=== PATIENT | female | born 1970 | race Caucasian/White ===

== ENCOUNTER 2017-02-07 20:28 | Emergency (ER) | payer MEDICARE ==
[~2017-02-07] VITALS: Ht 160 cm; Wt 88.5 kg
[~2017-02-07 20:28] MED LIST: BACLOFEN10 MG PO; BENADRYL25 MG PO; CIPROFLOXACIN500 MG PO; CYMBALTA60 MG PO; DOCUSATE SODIU100 MG PO; FIORICET 50-321 EACH PO; GABAPENTIN300 MG PO; HYDROCODON-ACE1 EA10 PO; HYDROCODON-ACE1 EAC8 PO; IMITREX100 MG PO; LAMOTRIGINE25 MG PO; MACROBID 100 M100 MG PO; MECLIZINE HCL25 MG PO; MELOXICAM7.5 MG PO; NAPROXEN500 M1 PO; NORCO 5-325 TA1 EACH PO; ONDANSETRON ODT4 MG SL; ONDANSETRON ODT8 MG PO; OXYCODONE HCL5 MG PO; PERCOCET 5-3251 EACH PO; PHENTERMINE H37.5 M1 PO; PIROXICAM20 MG PO; PREDNISOLONE SO10 MG PO; PREDNISONE20 MG PO; PROBIOTIC1 EAC2 PO; PROMETHAZINE HC25 M1 PO; PROXICAM; PYRIDIUM200 MG; SULFAMETHOXAZO1 EAC1 PO; SUMAVEL DO4 MG/0.5 M SQ; TOPAMAX100 MG PO; TRANSDERM-SCOP1 EA TD; VISTARIL50 MG PO; VOLTAREN-XR100 MG PO; ZANAFLEX4 MG PO; ZOFRAN ODT4 MG SL; ZOFRAN ODT8 MG SL; ZOFRAN8 MG PO; ZOLPIDEM TART6.25 MG PO
[2017-02-07] MEDS ORDERED: ROBAXIN-750750 MG PO (20:45)
--- NOTE | 2017-02-08 16:17 | EKG ---
[facility] [address] [facility] [place] [address] Signed Normal sinus rhythm Normal ECG When compared with ECG of 05-NOV-2016 21:16, Vent. rate has decreased BY 40 BPM Confirmed by CARLI MELTON MD ([id number]) on 02/08/2017 4:16:58 PM Electronically Signed By: CARLI MELTON MD 02/08/17 1617 PATIENT NAME: GINNY JOHNSON JOSELUIS Electrocardiogram DATE OF : 66 PHYSICIAN: CARLI MELTON MD REPORT #: [id number] REPORT IS CONFIDENTIAL AND NOT TO BE RELEASED WITHOUT AUTHORIZATION
== END 2017-02-07 22:36 | disposition home or self-care (01) ==
LOC: ED 20:28
DX: R07.9 Chest pain, unspecified (principal); Z90.49 Acquired absence of other specified parts of digestive tract; Z98.51 Tubal ligation status; Z88.4 Allergy status to anesthetic agent; Z79.899 Other long term (current) drug therapy; Z79.891 Long term (current) use of opiate analgesic; Z98.890 Other specified postprocedural states
CPT/HCPCS: 71010; 80053; 84484; 85025; 93005; 93010; 96361; 96374; 99284; J1885; J7030

== ENCOUNTER 2017-03-25 13:00 | Emergency (ER) | payer MEDICARE ==
[~2017-03-25] VITALS: Ht 160 cm; Wt 83.9 kg
[~2017-03-25 13:00] MED LIST changes: +ROBAXIN-750750 MG PO
== END 2017-03-25 14:48 | disposition home or self-care (01) ==
LOC: ED 13:00
DX: M54.41 Lumbago with sciatica, right side (principal); Z90.49 Acquired absence of other specified parts of digestive tract; Z98.51 Tubal ligation status; Z98.890 Other specified postprocedural states; Z88.4 Allergy status to anesthetic agent
CPT/HCPCS: 72100; 96372; 99283; J1170; J2550

== ENCOUNTER 2017-03-27 13:26 | Emergency (ER) | payer MEDICARE ==
[~2017-03-27] VITALS: Ht 160 cm; Wt 83.9 kg
[2017-03-27] MEDS ORDERED: PERCOCET 5-3251 EACH PO (14:13)
== END 2017-03-27 14:29 | disposition home or self-care (01) ==
LOC: ED 13:26
DX: G89.29 Other chronic pain (principal); M54.5 Low back pain; G43.909 Migraine, unspecified, not intractable, without status migrainosus; Z90.49 Acquired absence of other specified parts of digestive tract; Z98.51 Tubal ligation status; Z88.8 Allergy status to other drugs, medicaments and biological substances; Z79.899 Other long term (current) drug therapy
CPT/HCPCS: 99283

== ENCOUNTER 2017-09-27 22:18 | Emergency (ER) | payer OTHER ==
[~2017-09-27] VITALS: Ht 160 cm; Wt 83.9 kg
[~2017-09-27 22:18] MED LIST changes: +DOK100 MG PO; +SENNA CONCENTR8.6 MG PO; +VISTARIL25 MG PO; +VITAMIN D31000 UNI1 PO; +ZESTRIL10 MG PO; +ZOFRAN ODT4 MG PO
== END 2017-09-28 02:50 | disposition home or self-care (01) ==
LOC: ED 22:18
DX: R10.84 Generalized abdominal pain (principal); Z88.4 Allergy status to anesthetic agent; Z79.899 Other long term (current) drug therapy
CPT/HCPCS: 74176; 80053; 81001; 85025; 96374; 96375; 99284; J1170; J1200; J2405; J2550; J2765; J7030

== ENCOUNTER 2020-10-21 00:33 | Emergency (ER) | payer MEDICARE ==
[~2020-10-21] VITALS: Ht 160 cm; Wt 86.2 kg
--- OUTSIDE RECORDS SUMMARY | 2020-10-21 00:36 | XMS ---
PreManage Notification: GINNY JOHNSON Security Livestock Breeder Events No recent Security Events currently on file CRITERIA MET - Group Notification - [facility] There are no care providers on record at this time. Sung has no Care Guidelines for this patient. Care History Medical/Surgical 09/29/2017 [facility] - Patient is currently being seen by a Pain Clinic- On a Pain Contract per patient, - Patient has had two surgeries and is currently trying to manage her pain and chronic conditions. 09/29/2017 [facility] - Patient does not follow through with scheduled PCP appointments with Dr Bacilio alicea. - Patient does not answer phone calls from CHW and or PCP office. If patient is seen in ED for chronic condition please refer patient to PCP office per Dr Arteaga office. Care Recommendation: This patient has had 5 or more Emergency Department visits in the last 12 months. Patient requires education on the scope and purpose of the ED as an acute care provider not a Primary Care Provider and should not be utilized for chronic conditions. If patient returns to ED please contact Community Health WorkerManuela at [phone]. These are guidelines and the provider should exercise clinical judgment when providing care. E.D. VISIT COUNT (12 MO.) 1 [facility] TOTAL 1 NOTE: Visits indicate total known visits. ED/UCC VISIT TRACKING (12 MO.) 10/21/2020 00:34 [facility] [place] TYPE: Emergency COMPLAINT: - MULTIPLE COMPLAINTS INPATIENT VISIT TRACKING (12 MO.) No inpatient visits to display in this time frame [id number]
[2020-10-21] MEDS ORDERED: CEFDINIR300 MG (00:55)
[2020-10-21] MEDS ORDERED: SUMATRIPTAN SUC50 MG (00:55)
[2020-10-21] MEDS ORDERED: ROPINIROLE HCL1 MG (00:55)
[2020-10-21] MEDS ORDERED: EZETIMIBE10 MG (00:56)
[2020-10-21] MEDS ORDERED: GABAPENTIN800 MG (00:56)
[2020-10-21] MEDS ORDERED: DULOXETINE HCL60 MG (00:56)
[2020-10-21] MEDS ORDERED: ATORVASTATIN CA20 MG (00:56)
--- NOTE | 2020-10-21 12:02 | EKG ---
[facility] [address] [facility] [place], [place] [address] Signed Normal sinus rhythm Normal ECG When compared with ECG of 21-OCT-2020 00:46, (Unconfirmed) No significant change was found Confirmed by ROMEL PEREA MD ([id number]) on 10/21/2020 12:02:37 PM Electronically Signed By: ROMEL PEREA MD 10/21/20 1202 PATIENT NAME: ELIZABETHGINNYWILDA HUGGINS Electrocardiogram DATE OF : 66 PHYSICIAN: ROMEL PEREA MD REPORT #: [id number] REPORT IS CONFIDENTIAL AND NOT TO BE RELEASED WITHOUT AUTHORIZATION
--- NOTE | 2020-10-21 12:02 | EKG ---
[facility] [address] [facility] [place], [place] [address] Signed Normal sinus rhythm Normal ECG When compared with ECG of 07-FEB-2017 20:34, No significant change was found Confirmed by ROMEL PEREA MD ([id number]) on 10/21/2020 12:02:30 PM Electronically Signed By: ROMEL PEREA MD 10/21/20 1202 PATIENT NAME: GINNY JOHNSON JOSELUIS Electrocardiogram DATE OF : 66 PHYSICIAN: ROMEL PEREA MD REPORT #: [id number] REPORT IS CONFIDENTIAL AND NOT TO BE RELEASED WITHOUT AUTHORIZATION
== END 2020-10-21 05:05 | disposition home or self-care (01) ==
LOC: ED 00:33
DX: I95.9 Hypotension, unspecified (principal); G43.909 Migraine, unspecified, not intractable, without status migrainosus; M19.90 Unspecified osteoarthritis, unspecified site; Z88.8 Allergy status to other drugs, medicaments and biological substances; Z79.899 Other long term (current) drug therapy
CPT/HCPCS: 71045; 80053; 81001; 83605; 83735; 84484; 85025; 87040; 93005; 93010; 96374; 99284-25; J2310; J7030

== ENCOUNTER 2021-09-29 04:50 | Emergency (ER) | payer MEDICARE ==
[~2021-09-29] VITALS: Ht 160 cm; Wt 89.4 kg
[~2021-09-29 04:50] MED LIST changes: +ATORVASTATIN CA20 MG; +CEFDINIR300 MG; +DULOXETINE HCL60 MG; +EZETIMIBE10 MG; +GABAPENTIN800 MG; +ROPINIROLE HCL1 MG; +SUMATRIPTAN SUC50 MG
--- OUTSIDE RECORDS SUMMARY | 2021-09-29 04:52 | XMS ---
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 Care History Medical/Surgical 10/22/2020 [facility] - Patient is currently established with [facility]. If patient is seen in the ED during business hours. Please contact CHWs at [facility]. Care Recommendation: If this patient has had 5 or more Emergency Department visits in the last 12 months.\T\nbsp; Patient will require education on the scope and purpose of the ED as an acute care provider not a Primary Care Provider and should not be utilized for chronic conditions.\T\nbsp; These are guidelines and the provider should exercise clinical judgment when providing care. 09/29/2017 [facility] - Patient is currently being seen by a Pain Clinic- On a Pain Contract per patient, - Patient has had two surgeries and is currently trying to manage her pain and chronic conditions. E.D. VISIT COUNT (12 MO.) [address] [facility] TOTAL 2 NOTE: Visits indicate total known visits. ED/UCC VISIT TRACKING (12 MO.) 09/29/2021 04:[address] [facility] [place] TYPE: Emergency COMPLAINT: - NAUSEA, VOMITING, ABD PAIN 10/21/2020 00:[address] [facility] [facility] [place] TYPE: Emergency COMPLAINT: - MULTIPLE COMPLAINTS DIAGNOSES: - Hypotension, unspecified - Allergy status to other drugs, medicaments and biological substances - Dizziness and giddiness - Unspecified osteoarthritis, unspecified site - Migraine, unspecified, not intractable, without status migrainosus - Other prison (current) drug therapy INPATIENT VISIT TRACKING (12 MO.) No inpatient visits to display in this time frame [email or web address]
[2021-09-29] MEDS ORDERED: LISINOPRIL20 MG PO (05:00)
[2021-09-29] MEDS ORDERED: HYDROXYZINE HCL25 MG PO (05:00)
[2021-09-29] MEDS ORDERED: ONDANSETRON ODT8 MG PO (06:31)
== END 2021-09-29 09:20 | disposition home or self-care (01) ==
LOC: ED 04:50
DX: K52.9 Noninfective gastroenteritis and colitis, unspecified (principal); G43.909 Migraine, unspecified, not intractable, without status migrainosus; M19.90 Unspecified osteoarthritis, unspecified site; G47.33 Obstructive sleep apnea (adult) (pediatric); Z88.8 Allergy status to other drugs, medicaments and biological substances; Z79.899 Other long term (current) drug therapy
CPT/HCPCS: 36415; 80053; 83690; 85025; 96374; 96375; 99284-25; J1790; J2405; J7030

== ENCOUNTER 2022-01-12 17:33 | Emergency (ER) | payer OTHER, MEDICARE ==
[~2022-01-12] VITALS: Ht 160 cm; Wt 88.5 kg
[~2022-01-12 17:33] MED LIST changes: +HYDROXYZINE HCL25 MG PO; +LISINOPRIL20 MG PO
--- OUTSIDE RECORDS SUMMARY | 2022-01-12 17:36 | XMS ---
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 Care History Medical/Surgical 10/22/2020 [facility] - Patient is currently established with [facility]. If patient is seen in the ED during business hours. Please contact CHWs at [facility]. Care Recommendation: If this patient has had 5 or more Emergency Department visits in the last 12 months.\T\nbsp; Patient will require education on the scope and purpose of the ED as an acute care provider not a Primary Care Provider and should not be utilized for chronic conditions.\T\nbsp; These are guidelines and the provider should exercise clinical judgment when providing care. 09/29/2017 [facility] - Patient is currently being seen by a Pain Clinic- On a Pain Contract per patient, - Patient has had two surgeries and is currently trying to manage her pain and chronic conditions. [place] VISIT COUNT (12 MO.) 1 [facility] 2 [facility] TOTAL 3 NOTE: Visits indicate total known visits. ED/UCC VISIT TRACKING (12 MO.) 01/12/2022 17:33 [facility] [place] TYPE: Emergency COMPLAINT: - ANIMAL BITE 12/09/2021 12:51 [facility] TYPE: Emergency COMPLAINT: - CANT SWALLOW,SOB 09/29/2021 04:50 [facility] [place] TYPE: Emergency COMPLAINT: - NAUSEA, VOMITING, ABD PAIN DIAGNOSES: - Migraine, unspecified, not intractable, without status migrainosus - Allergy status to other drugs, medicaments and biological substances - Other alf (current) drug therapy - Obstructive sleep apnea (adult) (pediatric) - Unspecified osteoarthritis, unspecified site - Noninfective gastroenteritis and colitis, unspecified - Left upper quadrant pain INPATIENT VISIT TRACKING (12 MO.) 12/09/2021 15:49 [facility] TYPE: Intensive Care COMPLAINT: - POST OP SEROMA DIAGNOSES: - Body mass index [BMI] 34.0-34.9, adult - Dehydration - Essential (primary) hypertension - Postprocedural seroma of a nervous system organ or structure following other procedure - Acute kidney failure, unspecified - Other chronic pain - Contact with and (suspected) exposure to COVID-19 - Other terminal supervisor (current) drug therapy - Dysphagia, unspecified - Restless legs syndrome - Hyperlipidemia, unspecified - Obesity, unspecified - Major depressive disorder, recurrent, moderate - Hypo-osmolality and hyponatremia 12/03/2021 06:47 [facility] TYPE: Intensive Care COMPLAINT: - CERVICAL SPONDYLOSIS WITH RADICULOPATHY DIAGNOSES: - Restless legs syndrome - Body mass index [BMI] 35.0-35.9, adult - Other spondylosis with radiculopathy, cervical region - Restless legs syndrome - Carpal tunnel syndrome, right upper limb - Carpal tunnel syndrome, right upper limb - Obesity, unspecified - Other chronic pain - Spinal stenosis, cervical region - Other spondylosis with radiculopathy, cervical region - Other chronic pain - Body mass index [BMI] 35.0-35.9, adult - Hyperlipidemia, unspecified - Essential (primary) hypertension - Dysphagia, unspecified - Obesity, unspecified - Essential (primary) hypertension - Spinal stenosis, cervical region - Other spondylosis with radiculopathy, cervical region - Hyperlipidemia, unspecified - Major depressive disorder, recurrent, moderate - Major depressive disorder, recurrent, moderate - Dysphagia, unspecified [email or web address]
[2022-01-12] MEDS ORDERED: TIZANIDINE HCL4 MG PO (17:53)
[2022-01-12] MEDS ORDERED: GABAPENTIN800 MG PO (17:53)
[2022-01-12] MEDS ORDERED: AMOX TR-K CLV1 EAC1 PO (18:03)
== END 2022-01-12 19:02 | disposition home or self-care (01) ==
LOC: ED 17:33
DX: S60.372A Other superficial bite of left thumb, initial encounter (principal); W55.01XA Bitten by cat, initial encounter; Z88.5 Allergy status to narcotic agent; Z79.899 Other long term (current) drug therapy
CPT/HCPCS: A9270

== ENCOUNTER 2024-02-25 15:30 | Inpatient (IN) | payer MEDICARE, OTHER ==
[~2024-02-25] VITALS: Ht 160 cm; Wt 92.4 kg
[~2024-02-25 15:30] MED LIST changes: +AMOX TR-K CLV1 EAC1 PO; +DOCUSATE SODIU100 M1 PO; +GABAPENTIN800 MG PO; +HYDROCHLOROTH12.5 MG PO; +NITROSTAT0.4 MG SL; +TIZANIDINE HCL4 MG PO; +TRAZODONE HCL50 MG PO; +VAZALORE81 MG PO
[2024-02-25] MEDS ORDERED: MORPHINE SULFAT15 M1 PO (15:50)
[2024-02-25 15:53] LABS: BASOPHILS 0.9 % (0-2); EOSINOPHILS 3.7 % (0-6); HEMATOCRIT 37.2 % (35.0-50.0); HEMOGLOBIN 13.2 g/dL (12.0-18.0); LYMPHOCYTES 26.6 % (24-44); MCH 30.4 (27-36); MCHC 35.4 g/dl (30-36); MCV 85.9 fl (81-99); MONOCYTES 6.5 % (0-12); NEUTROPHILS 62.3 % (39-80); PLATELET COUNT 227 K/uL (140-440); RBC 4.33 M/ul (4.3-5.7)
[2024-02-25] MEDS ORDERED: SODIUM CHLORIDE 0.9% 1,000 ML IV ONE (16:00)
[2024-02-25 16:38] LABS: BILIRUBIN, URINE NEGATIVE (negative); BLOOD/HGB, URINE LARGE (Negative); KETONE, URINE NEGATIVE (Negative); LEUK ESTERASE, URINE SMALL (negative); NITRITE, URINE POSITIVE (negative)
[2024-02-25 16:42] LABS: ALBUMIN 2.7 g/dL (3.4-5.0); ALBUMIN/GLOBULIN RATIO 1.08 (1.1-2.4); ANION GAP 5.9 (7-21); BILIRUBIN, TOTAL 0.2 ng/dL (0.2-1.0); BUN/CREATININE RATIO 14.01 (6.0-28.6); CALCIUM 8.1 mg/dL (8.5-10.1); CREATININE, SERUM 1.07 mg/dL (0.55-1.02); POTASSIUM 3.9 mmol/L (3.5-5.1); PROTEIN, TOTAL 5.2 g/dL (6.4-8.2)
[2024-02-25 16:45] LABS: EPITHELIAL CELLS, URINE SQUAMOUS 3+ /lpf (0-1+); WHITE BLOOD CELLS, URINE 21-40 /HPF (0-5)
[2024-02-25 16:46] LABS: BACTERIA, URINE 3+ /hpf (negative); CASTS, URINE HYALINE 2+ \\lpf; CRYSTALS, URINE NONE SEEN (0-1+)
[2024-02-25 16:47] LABS: COLLECTION TYPE, URINE CLEAN CATCH; REFLEX CULTURE, URINE No (No)
--- NOTE | 2024-02-25 18:31 | EKG ---
[facility] [address] [facility] [place], [place] [address] Signed Normal sinus rhythm Low voltage QRS Right bundle branch block Abnormal ECG No previous ECGs available Confirmed by Twyla Cook MD ([id number]) on 02/25/2024 6:30:49 PM Electronically Signed By: TWYLA COOK MD 02/25/241830 PATIENT NAME: GINNY JOHNSON Electrocardiogram DATE OF : 66 PHYSICIAN: TWYLA COOK MD REPORT #: [id number] REPORT IS CONFIDENTIAL AND NOT TO BE RELEASED WITHOUT AUTHORIZATION
[2024-02-25] MEDS ORDERED: OXYCODONE HCL 5 MG TAB PO PRN (18:45)
[2024-02-25 19:01] VITALS: BP 115/75
[2024-02-25] MEDS ORDERED: CEFTRIAXONE/SODIUM CHLORIDE 1 GM/100 ML PIGGYBACK IV SCH (19:30)
--- NOTE | 2024-02-25 19:30 | NUR ---
REPORT RECEIVED FROM FLAKITA OLIVO, PT IS RESTING IN BED AWAKE, USING TABLET, NO REQUESTS AT THIS TIME.
--- NOTE | 2024-02-25 19:45 | NUR ---
IN TO MEET PT AND DISCUSS PLAN OF CARE FOR THE NIGHT. PT UPDATED ON NEED FOR ANOTHER URINE SAMPLE PER LAB AND DR BAUM REQUEST FOR IT TO BE OBTAINED VIA STRAIGHT CATH AND PT AGREEABLE BUT WANTS TO WAIT A BIT SHE HAS JUST GOTTEN BACK FROM USING THE BATHROOM. NO FURTHER REQUESTS.
--- NOTE | 2024-02-25 20:15 | NUR ---
IN TO DO STRAIGHT CATH FOR URINE SAMPLE AND ASSESSMENT. AFTER URINE SAMPLE OBTAINED PT GOT UP TO AMBULATE SELF TO BATHROOM TO VOID FURTHER, STEADY ON FEET, HR STEADY WHILE UP. PT THEN ASSISTED BACK TO BED. ORTHOSTATIC VITALS WERE DONE AND WERE NEGATIVE. PT DOES HAVE CHRONIC BACK PAIN BUT SHE STATES IT IS TOLERABLE AT THIS TIME. SHE HAS AN INCISION ON RIGHT NECK FROM RECENT SURGERY WITH [facility]. SHE DOES STATE SHE IS HOT, TEMP TURNED DOWN AND FAN PROVIDED. NO OTHER REQUESTS AT THIS TIME.
[2024-02-25 20:29] LABS: BILIRUBIN, URINE NEGATIVE (negative); BLOOD/HGB, URINE MODERATE (Negative); KETONE, URINE NEGATIVE (Negative); LEUK ESTERASE, URINE SMALL (negative); NITRITE, URINE NEGATIVE (negative); PH, URINE 6.5 (5-7)
[2024-02-25 20:39] LABS: BACTERIA, URINE 2+ /hpf (negative); CASTS, URINE NONE SEEN \\lpf; CRYSTALS, URINE NONE SEEN (0-1+); EPITHELIAL CELLS, URINE SQUAMOUS 1+ /lpf (0-1+); WHITE BLOOD CELLS, URINE 41-50 /HPF (0-5)
[2024-02-25 20:40] LABS: COLLECTION TYPE, URINE CLEAN CATCH; REFLEX CULTURE, URINE Yes (No)
[2024-02-25 21:00] VITALS: BP 112/64
[2024-02-25] MEDS ORDERED: GABAPENTIN 400 MG CAP PO SCH (21:00)
[2024-02-25] MEDS ORDERED: TRAZODONE HCL 50 MG TAB PO SCH (21:00)
--- NOTE | 2024-02-25 21:10 | NUR ---
IN TO GIVE HS MEDS, PT STATES SHE USUALLY TAKES 150MG TRAZADONE AND IS REQUESTING THIS AMOUNT. CALL TO MD WHO STATES HE WILL CHANGE THE DOSE.
[2024-02-25 21:30] VITALS: BP 157/89
[2024-02-25] MEDS ORDERED: TRAZODONE HCL 50 MG TAB ONE (21:34)
--- NOTE | 2024-02-25 21:49 | NUR ---
PT ASSISTED UP TO BATHROOM TO VOID, HR STEADY IN THE 70'S WHILE UP. BACK TO BED, GETTING READY TO TRY TO SLEEP FOR THE NIGHT. CALL LIGHT IN HAND. NO FURTHER REQUESTS.
[2024-02-25 22:00] VITALS: BP 129/68
[2024-02-25 22:30] VITALS: BP 117/54
--- NOTE | 2024-02-25 23:30 | NUR ---
PT CALLS TO USE BATHROOM TO VOID, BACK TO BED, NO COMPLAINTS.
[2024-02-26] VITALS (7 sets, daily range): BP systolic 129–166; BP diastolic 67–95
--- NOTE | 2024-02-26 02:45 | NUR ---
PT UP BATHROOM TO VOID, BACK TO BED.
--- NOTE | 2024-02-26 03:30 | NUR ---
PT CALLS FOR ASSIST UP TO BATHROOM TO VOID, BACK BED, STATES SHE HAS BEEN ABLE TO GET SMALL AMOUNTS OF SLEEP BETWEEN GETTING UP TO BATHROOM. OTHERWISE NO COMPLAINTS.
--- NOTE | 2024-02-26 05:00 | NUR ---
LAB CAME BY FOR BLOOD DRAW, PT SLEEPING, WILL DEFER LAB DRAW UNTIL PT WAKES.
--- NOTE | 2024-02-26 06:51 | NUR ---
PT AWAKE IN BED, NO COMPLAINTS, HAS JUST GOTTEN UP TO VOID, BACK TO BED, ORDERED BREAKFAST. LAB DRAW DONE.
[2024-02-26 07:12] LABS: EOSINOPHILS 3.6 % (0-6); HEMATOCRIT 38.7 % (35.0-50.0); HEMOGLOBIN 13.7 g/dL (12.0-18.0); LYMPHOCYTES 20.8 % (24-44); MCHC 35.3 g/dl (30-36); MONOCYTES 7.3 % (0-12); NEUTROPHILS 67.3 % (39-80); PLATELET COUNT 268 K/uL (140-440); RBC 4.55 M/ul (4.3-5.7); RDW 13.3 (10.5-15.0)
[2024-02-26 07:21] LABS: BUN/CREATININE RATIO 11.49 (6.0-28.6); CALCIUM 9.1 mg/dL (8.5-10.1); CREATININE, SERUM 0.87 mg/dL (0.55-1.02)
[2024-02-26] MEDS ORDERED: ASPIRIN 81 MG CHEW PO SCH (08:00)
--- NOTE | 2024-02-26 08:02 | NUR ---
REPORT RECEIVED FROM NIGHT RN - PT IN BED WITH ECHO STUDY IN PROGRESS. VS STABLE ON MONITOR.
[2024-02-26] MEDS ORDERED: ENOXAPARIN SODIUM 40 MG/0.4 ML SYR SUB-Q SCH (09:00)
--- NOTE | 2024-02-26 10:41 | NUR ---
PT RESTING IN BED AFTER RETURNING FROM BATHROOM - PT REPORTS IMPROVED PAIN AFTER PRN NORCO. PT DENIES DIZZINESS OR UNSTEADYNESS ON FEET WHILE AMBULATING. BP REMAINS WNL/HYPERTENSIVE. PT DENIES NAUSEA, NORMAL BM THIS MORNING. FREQUENT URNIATION WITHOUT BURNING WHICH PT STATES IS NORMAL. PT REQUESTS AIR MATTRESS TOPPER TO BED NEXT TIME SHE GETS UP. UPDATED ON POC TO TX TO MS STATUS. ALL QUESTIONS ANSWERED.
[2024-02-26] MEDS ORDERED: PHARMACY RENAL DOSE ADJUSTMENT 1 DOSE MISC PO SCH (12:00)
--- NOTE | 2024-02-26 12:01 | NUR ---
PT UP TO VOID - IND IN ROOM. DENIES COMPLAINTS. RATES PAIN DECREASED TO 4/10. WAFFLE MATTRESS PLACED ON BED AND PT STATES IMPROVED COMFORT. LUNCH TRAY PROVIDED. PT DENIES FURTHER NEEDS. VSS. CALL LIGHT IN REACH.
[2024-02-26] MEDS ORDERED: SUMAtriptan succinate 50 MG TAB PO PRN (13:15)
--- NOTE | 2024-02-26 13:30 | NUR ---
PRN IMITREX ADMINISTERED PER PT REQUEST FOR MIGRAINE, 12/30. ICE PACK ALSO PROVIDED. PT STATES MIGRAINE IS NORMAL FOR HER IN CHARACTER. DENIES FURTHER NEEDS. CALL LIGHT IN REACH.
--- NOTE | 2024-02-26 15:40 | NUR ---
PT USES CALL LIGHT TO REQUEST ADDITIONAL IMITREX - HEADACHE REMAINS 8/10 AND UNRELIEVED BY PREVIOUS DOSE. PRN OXYCODONE ADMINISTERED WELL. VS STABLE.
--- NOTE | 2024-02-26 17:12 | NUR ---
PT AWAKE RESTING IN BED - STATES HEADACHE HAS IMPROVED, NOW 10/30. DINNER PROVIDED. PT DENIES FURTHER NEEDS AT THIS TIME, CALL LIGHT IN REACH.
[2024-02-26] MEDS ORDERED: TRAZODONE HCL 100 MG TAB PO SCH (21:00)
[2024-02-26] MEDS ORDERED: TRAZODONE HCL 50 MG TAB PO SCH (21:00)
--- NOTE | 2024-02-26 21:05 | NUR ---
PT ARRIVES TO MED SURG VIA STRETCHER. PT ORIENTED TO DEPARMENT, CALL LIGHT, POC FOR THIS SHIFT. VS OBTAINED. WNL. PT FAMILY PRESENT AT BEDSIDE. PT DENIES FURTHER NEEDS AT THIS TIME. CALL LIGHT IN REACH.
--- NOTE | 2024-02-26 21:34 | NUR ---
RECEIVED REPORT FROM EDITH OLIVO. PATIENT IS IN SHOWER AT THIS TIME.
--- NOTE | 2024-02-26 21:55 | NUR ---
PATIENT IS RESTING IN BED. PATIENTS IV ABX INFUSING PER ORDER. PATIENT DENIES ANY NEEDS. CALL LIGHT IN REACH.
--- NOTE | 2024-02-26 22:38 | NUR ---
PATIENT IS RESTING IN BED ON BACK. IV ABX COMPLETED INFUSING. PATIENT IS NOW SL PER ORDER. PATIENT DENIES ANY FURTHER NEEDS. CALL LIGHT IN REACH.
--- NOTE | 2024-02-27 00:29 | NUR ---
PATIENT IS RESTING IN BED WITH EYES CLSOED, RR 16. CALL LIGHT IN REACH.
--- NOTE | 2024-02-27 02:13 | NUR ---
PATIENT IS RESTING IN BED WITH EYES CLSOED, RR 15. CALL LIGHT IN REACH.
--- NOTE | 2024-02-27 04:04 | NUR ---
PATIENT IS RESTING IN BED WITH EYES CLSOED, RR 16. CALL LIGHT IN REACH.
[2024-02-27 04:40] VITALS: BP 131/81
--- NOTE | 2024-02-27 04:55 | NUR ---
PATIENT UP TO BR IND. PATIENT ABLE TO VOID. PATIENT IS BACK IN BED RESTING. PATIENTS VITALS TAKEN AND RECORDED. INTAKE AND OUTPUT RECORDED. PATIENT PROVIDED AM SNACK. PATIENT DENIES BEING LIGHT HEADED OR DIZZY DURING AMBULATION. PATIENT DENIES ANY FURTHER NEEDS. CALL LIGHT IN REACH.
[2024-02-27 05:10] VITALS: BP 131/81
[2024-02-27 05:27] LABS: BASOPHILS 1.1 % (0-2); EOSINOPHILS 3.7 % (0-6); HEMATOCRIT 39.8 % (35.0-50.0); HEMOGLOBIN 13.8 g/dL (12.0-18.0); LYMPHOCYTES 27.5 % (24-44); MCH 29.9 (27-36); MCHC 34.7 g/dl (30-36); MCV 86.2 fl (81-99); MONOCYTES 9.9 % (0-12); NEUTROPHILS 57.8 % (39-80); PLATELET COUNT 261 K/uL (140-440); RBC 4.62 M/ul (4.3-5.7); RDW 13.3 (10.5-15.0)
[2024-02-27 05:39] LABS: ANION GAP 11.9 (7-21); BUN/CREATININE RATIO 14.77 (6.0-28.6); CALCIUM 8.8 mg/dL (8.5-10.1); CREATININE, SERUM 0.88 mg/dL (0.55-1.02); POTASSIUM 3.9 mmol/L (3.5-5.1)
--- NOTE | 2024-02-27 06:00 | NUR ---
PATIENT IS RESTING IN BED WATCHING A SHOW ON HER COMPUTER. PATIENT DENIES ANY NEEDS. CALL LIGHT IN REACH.
--- NOTE | 2024-02-27 07:40 | NUR ---
PT SITTING UP IN BED EATING BREAKFAST - STATES SHE FEELS BETTER AND WAS ABLE TO SLEEP THROUGH THE NIGHT. PT REQUESTS KETCHUP - PROVIDED. DENIES FURTHER NEEDS. CALL LIGHT IN REACH.
--- NOTE | 2024-02-27 08:20 | NUR ---
ASSESSMENT COMPLETE - PT TOLERATING REGULAR DIET WITHOUT DISCOMFORT OR DIFFICULTY SWALLOWING. BP HAS BEEN WNL AND WITHOUT HYPOTENSION FOR 24 HRS. PT REPORTS CHRONIC PAIN 10/30 AND DENIES NEED FOR PAIN MEDICATION AT THIS TIME.
[2024-02-27] MEDS ORDERED: MACROBID 100 M100 MG PO (09:16)
--- NOTE | 2024-02-27 09:42 | NUR ---
SPOKE TO PATIET ABOUT THE DISCHARGE PLAN. PATIENT PLANS TO GO HOME WITH HER AND HER LITTLE DOG.PATIENT'S DEMOGRAPHICS ARE CORRECT. THE PATIENT HAS A WALKER AND A BIPAP MACHINE.PATIENT CAN DO HER OWN ADLS.PATIENT HAS FRIENDS AND FAMILY THAT CAN HELP IF NEEDED.PATIENT HAS MONEY FOR FOOD AND HOUSING. PATIENT DOES NOT HAVE ANY DISCHARGE NEEDS AT THIS TIME.PATIENT WILL BE DISCHARGED TODAY.
[2024-02-27 09:43] VITALS: BP 107/74
--- NOTE | 2024-02-27 10:00 | NUR ---
DC INSTRUCTIONS PROVIDED TO PT AND - STATES UNDERSTANDING. IV REMOVED, CATH INTACT.
--- NOTE | 2024-02-27 12:37 | NUR ---
UR CLINICAL REVIEW: 2 MN FOR VERSALUS-MEET INPT CRITERIA WITH NEED FOR IV ABX MEDICARE INPT 02/25/24 @ 1756 ORDER MATCHES REG NO AUTH REQUIRED PER MEDICARE GUIDELINES DISCHARGE TO HOME WHEN STABLE
[2024-02-27 19:38] LABS: CORTISOL,SERUM 1.7 ug/dL (())
== END 2024-02-27 10:15 | disposition home or self-care (01) | DRG 690 ==
LOC: ED 15:30 → CCU 17:56 → MS 02-26 21:32
PROVIDERS: Emergency Medicine; ADMIT Student in an Organized Health Care Education/Training Program; ATTEND Student in an Organized Health Care Education/Training Program
DX: N39.0 Urinary tract infection, site not specified (principal); E86.0 Dehydration; E78.5 Hyperlipidemia, unspecified; G47.00 Insomnia, unspecified; G43.909 Migraine, unspecified, not intractable, without status migrainosus; M79.7 Fibromyalgia; M48.02 Spinal stenosis, cervical region; G47.33 Obstructive sleep apnea (adult) (pediatric); I25.2 Old myocardial infarction; Z90.49 Acquired absence of other specified parts of digestive tract; Z98.890 Other specified postprocedural states; Z98.1 Arthrodesis status; Z79.899 Other long term (current) drug therapy; Z79.82 Long term (current) use of aspirin
CPT/HCPCS: 36415; 51701; 71045; 80048; 80053; 81001; 82533; 83735; 84100; 84484; 85025; 87088; 93005; 93010; 93306; 94762; 99285-25; A9270; J0696; J1650; J7030

== ENCOUNTER 2024-06-22 20:26 | Emergency (ER) | payer MEDICARE, OTHER ==
[~2024-06-22] VITALS: Ht 160 cm; Wt 84.8 kg
[~2024-06-22 20:26] MED LIST changes: +MORPHINE SULFAT15 M1 PO
[2024-06-22] MEDS ORDERED: OXYCODONE HCL5 MG PO (20:42)
[2024-06-22] MEDS ORDERED: ATORVASTATIN CA40 MG PO (20:43)
[2024-06-22] MEDS ORDERED: ONDANSETRON ODT8 MG PO (20:43)
[2024-06-22] MEDS ORDERED: LACTATED RINGER'S 1,000 ML IV ONE (20:45)
[2024-06-22 21:17] LABS: PH, VENOUS 7.343 (7.31-7.41)
[2024-06-22 21:19] LABS: BASOPHILS 0.8 % (0-2); EOSINOPHILS 5.3 % (0-6); HEMATOCRIT 38.7 % (35.0-50.0); HEMOGLOBIN 13.2 g/dL (12.0-18.0); LYMPHOCYTES 28.5 % (24-44); MCH 29.4 (27-36); MCHC 34.2 g/dl (30-36); MCV 85.9 fl (81-99); MONOCYTES 11.2 % (0-12); NEUTROPHILS 54.2 % (39-80); PLATELET COUNT 225 K/uL (140-440); RBC 4.51 M/ul (4.3-5.7); RDW 13.7 (10.5-15.0)
[2024-06-22 21:41] LABS: ALBUMIN 3.2 g/dL (3.4-5.0); ALBUMIN/GLOBULIN RATIO 0.94 (1.1-2.4); ANION GAP 7.1 (7-21); BILIRUBIN, TOTAL 0.4 ng/dL (0.2-1.0); BUN/CREATININE RATIO 13.36 (6.0-28.6); CALCIUM 8.7 mg/dL (8.5-10.1); CREATININE, SERUM 2.02 mg/dL (0.55-1.02); POTASSIUM 4.1 mmol/L (3.5-5.1); PROTEIN, TOTAL 6.6 g/dL (6.4-8.2)
[2024-06-22] MEDS ORDERED: NOREPINEPHRINE BITARTRATE 250 ML IV SCH (21:45)
[2024-06-22] MEDS ORDERED: HYDROCORTISONE SOD SUCCINATE 100 MG/2 ML VIAL IV ONE (21:45)
[2024-06-22] MEDS ORDERED: SODIUM CHLORIDE 0.9% 1,000 ML IV ONE ×2 (22:00→22:15)
[2024-06-22] MEDS ORDERED: KETOROLAC TROMETHAMINE 15 MG/ML VIAL IV ONE (22:30)
[2024-06-23 01:42] LABS: PH, VENOUS 7.297 (7.31-7.41)
[2024-06-23 01:55] LABS: ANION GAP 9.9 (7-21); BUN/CREATININE RATIO 17.68 (6.0-28.6); CALCIUM 8.6 mg/dL (8.5-10.1); CREATININE, SERUM 1.47 mg/dL (0.55-1.02); POTASSIUM 4.9 mmol/L (3.5-5.1)
[2024-06-23] MEDS ORDERED: HYDROCORTISONE SOD SUCCINATE 100 MG/2 ML VIAL IV ONE (02:45)
[2024-06-23] MEDS ORDERED: FLUDROCORTISONE ACETATE 0.1 MG TAB PO ONE (04:30)
[2024-06-23] MEDS ORDERED: FLUDROCORTISON0.1 MG PO (04:32)
[2024-06-23] MEDS ORDERED: DEXAMETHASONE1.5 M3 PO (04:32)
[2024-06-23 04:57] VITALS: BP 112/83
--- NOTE | 2024-06-23 13:40 | EKG ---
[facility] [address] [facility] [place] [address] Signed Normal sinus rhythm Low voltage QRS Incomplete right bundle branch block T wave abnormality, consider anterior ischemia Prolonged QT Abnormal ECG When compared with ECG of 25-FEB-2024 15:52, No significant change was found Confirmed by Toño Dai DO ([id number]) on 06/23/2024 1:39:46 PM Electronically Signed By: TOÑO DAI DO 06/23/24 1340 PATIENT NAME: GINNY JOHNSON JOSELUIS Electrocardiogram DATE OF : 66 PHYSICIAN: TOÑO DAI DO REPORT #: [id number] REPORT IS CONFIDENTIAL AND NOT TO BE RELEASED WITHOUT AUTHORIZATION
[2024-06-24 17:47] LABS: ADRENOCORTICOTROPIC HORMONE <1.5 pg/mL (7.2-63.3)
[2024-06-25 12:22] LABS: CORTISOL,SERUM 2.7 ug/dL (())
[2024-06-25 12:35] LABS: ALDOSTERONE 15.5 ng/dL (())
== END 2024-06-23 04:56 | disposition home or self-care (01) ==
LOC: ED 20:26
PROVIDERS: Family Medicine
DX: I95.2 Hypotension due to drugs (principal); T50.905A Adverse effect of unspecified drugs, medicaments and biological substances, initial encounter; G43.909 Migraine, unspecified, not intractable, without status migrainosus; G47.33 Obstructive sleep apnea (adult) (pediatric); Z98.1 Arthrodesis status; Z98.890 Other specified postprocedural states; Z88.4 Allergy status to anesthetic agent; Z79.82 Long term (current) use of aspirin; Z79.899 Other long term (current) drug therapy
CPT/HCPCS: 36415; 70490; 71045; 80048; 80053; 82024; 82088; 82533; 82803; 83605; 83735; 83880; 84484; 85025; 85379; 93005; 93010; 96361; 96374; 96375; 96376; 99284-25; J1720; J1885; J7030; J7121

== ENCOUNTER 2024-08-16 21:52 | Emergency (ER) | payer MEDICARE, OTHER ==
[~2024-08-16] VITALS: Ht 160 cm; Wt 85.5 kg
[~2024-08-16 21:52] MED LIST changes: +ATORVASTATIN CA40 MG PO; +DEXAMETHASONE1.5 M3 PO; +FLUDROCORTISON0.1 MG PO
[2024-08-16] MEDS ORDERED: DIAZEPAM5 MG PO (23:31)
[2024-08-16] MEDS ORDERED: ZEPBOUND2.5 MG/0.5 (23:31)
[2024-08-17] MEDS ORDERED: KETOROLAC TROMETHAMINE 30 MG/ML VIAL IV ONE ×2 (01:00→02:00)
[2024-08-17] MEDS ORDERED: OXYCODONE HCL 5 MG TAB PO ONE (01:00)
[2024-08-17] MEDS ORDERED: TIZANIDINE HCL 4 MG TABLET PO ONE (01:00)
[2024-08-17 01:48] LABS: BASOPHILS 0.6 % (0-2); EOSINOPHILS 2.4 % (0-6); HEMATOCRIT 37.9 % (35.0-50.0); HEMOGLOBIN 13.3 g/dL (12.0-18.0); LYMPHOCYTES 22.5 % (24-44); MCH 28.7 (27-36); MCV 82.1 fl (81-99); MONOCYTES 7.2 % (0-12); NEUTROPHILS 67.3 % (39-80); PLATELET COUNT 232 K/uL (140-440); RBC 4.62 M/ul (4.3-5.7); RDW 13.5 (10.5-15.0)
[2024-08-17 01:58] LABS: ALBUMIN 3.6 g/dL (3.4-5.0); ALBUMIN/GLOBULIN RATIO 1.06 (1.1-2.4); ANION GAP 10.6 (7-21); BILIRUBIN, TOTAL 0.5 mg/dL (0.2-1.0); BUN/CREATININE RATIO 13.92 (6.0-28.6); CALCIUM 9.5 mg/dL (8.5-10.1); CREATININE, SERUM 0.79 mg/dL (0.55-1.02); POTASSIUM 4.6 mmol/L (3.5-5.1)
[2024-08-17] MEDS ORDERED: PREDNISONE20 MG PO (02:09)
[2024-08-17 02:23] VITALS: BP 114/62
[2024-08-17] MEDS ORDERED: KETOROLAC TROMETHAMINE 30 MG/ML VIAL IM ONE (02:30)
== END 2024-08-17 02:25 | disposition home or self-care (01) ==
LOC: ED 21:52
PROVIDERS: Internal Medicine
DX: S16.1XXA Strain of muscle, fascia and tendon at neck level, initial encounter (principal); X58.XXXA Exposure to other specified factors, initial encounter; M19.90 Unspecified osteoarthritis, unspecified site; G47.33 Obstructive sleep apnea (adult) (pediatric); Z88.6 Allergy status to analgesic agent; Z79.52 Long term (current) use of systemic steroids
CPT/HCPCS: 36415; 80053; 85025; 96372; 99283; A9270; J1885